=== PATIENT | male | born 1990 | race Caucasian/White ===

== ENCOUNTER 2021-07-28 14:36 | Inpatient (IN) | payer OTHER ==
[2021-07-28] MEDS ORDERED: ACETAMINOPHEN 325 MG TABLET (FP) PO PRN ×2 (15:43)
[2021-07-28] MEDS ORDERED: BISMUTH SUBSALICYLATE 524 MG/30 ML PO PRN (15:43)
[2021-07-28] MEDS ORDERED: DICYCLOMINE HCL 10 MG CAPSULE PO PRN (15:43)
[2021-07-28] MEDS ORDERED: IBUPROFEN 400 MG TABLET (FP) PO PRN (15:43)
[2021-07-28] MEDS ORDERED: LOPERAMIDE HCL 2 MG CAPSULE PO PRN (15:43)
[2021-07-28] MEDS ORDERED: BENZOCAINE/MENTHOL (CHLORASEPTIC ) LOZENGE MM PRN (15:43)
[2021-07-28] MEDS ORDERED: MAG HYDROX/AL HYDROX/SIMETH 30 ML UNIT-DOSE CUP PO PRN (15:43)
[2021-07-28] MEDS ORDERED: MAGNESIUM CITRATE 300 ML BOTTLE PO PRN (15:43)
[2021-07-28] MEDS ORDERED: ONDANSETRON *ODT* 4 MG TABLET SL PRN (15:43)
[2021-07-28] MEDS ORDERED: MAGNESIUM HYDROX 2400MG/30ML ORAL SUSPENSION 30 ML CUP PO PRN (15:43)
[2021-07-28 16:11] VITALS: BMI 18.8
[2021-07-28] MEDS ORDERED: diazePAM 5 MG TABLET ONE (19:16)
[2021-07-28] MEDS: diazePAM 5 MG TABLET PO SCH ×2 (19:18→22:22)
[2021-07-28] MEDS: NICOTINE 21 MG/24 HOURS TOPICAL PATCH TD SCH (19:55)
[2021-07-28] MEDS: NICOTINE 10 MG CARTRIDGE (INHALER) IH PRN (19:56)
[2021-07-28] MEDS: hydrOXYzine PAMOATE 25 MG CAPSULE (FP) PO SCH ×2 (20:01→22:22)
[2021-07-28] MEDS: PRENATAL VITAMINS W/ FOLIC ACID TABLET (FP) PO SCH (20:03)
[2021-07-28] MEDS: THIAMINE HCL 100 MG TABLET (FP) PO SCH (22:22)
[2021-07-28] MEDS: MELATONIN 5 MG TABLETS PO SCH (22:23)
[2021-07-29] MEDS: diazePAM 5 MG TABLET PO SCH ×4 (06:05→22:29)
[2021-07-29] MEDS: hydrOXYzine PAMOATE 25 MG CAPSULE (FP) PO SCH ×5 (06:05→22:30)
[2021-07-29] MEDS: PRENATAL VITAMINS W/ FOLIC ACID TABLET (FP) PO SCH (10:43)
[2021-07-29] MEDS ORDERED: methaDONE HCL 10 MG TABLET PO SCH (10:45)
[2021-07-29] MEDS ORDERED: methaDONE HCL 10 MG TABLET ONE (11:33)
[2021-07-29] MEDS ORDERED: methaDONE HCL 40 MG DISPERSABLE TABLET ONE (11:34)
[2021-07-29] MEDS: methaDONE 40 MG, methaDONE 30 MG PO SCH (11:35)
[2021-07-29] MEDS: NICOTINE 21 MG/24 HOURS TOPICAL PATCH TD SCH (12:00)
[2021-07-29 16:08] LABS: SARS-CoV-2 NAA Not Detected (Not Detected)
[2021-07-29] MEDS: METHOCARBAMOL 500 MG TABLET PO PRN (18:15)
[2021-07-29] MEDS: MELATONIN 5 MG TABLETS PO SCH (22:29)
[2021-07-29] MEDS: THIAMINE HCL 100 MG TABLET (FP) PO SCH (22:29)
[2021-07-30] MEDS ORDERED: methaDONE HCL 10 MG TABLET ONE (04:07)
[2021-07-30] MEDS ORDERED: methaDONE HCL 40 MG DISPERSABLE TABLET ONE (04:08)
[2021-07-30] MEDS: hydrOXYzine PAMOATE 25 MG CAPSULE (FP) PO SCH ×5 (05:10→22:03)
[2021-07-30] MEDS: diazePAM 5 MG TABLET PO SCH ×3 (05:10→22:03)
[2021-07-30] MEDS: methaDONE 40 MG, methaDONE 30 MG PO SCH (05:11)
[2021-07-30] MEDS: PRENATAL VITAMINS W/ FOLIC ACID TABLET (FP) PO SCH (10:26)
[2021-07-30] MEDS: NICOTINE 21 MG/24 HOURS TOPICAL PATCH TD SCH (10:26)
[2021-07-30] MEDS: METHOCARBAMOL 500 MG TABLET PO PRN (10:27)
[2021-07-30 13:24] LABS: ALBUMIN 2.8 g/dl (3.4-5.0); BLOOD UREA NITROGEN 11.7 mg/dL (7-18); CALCIUM 8.2 mg/dL (8.5-10.1)
[2021-07-30 13:27] LABS: CREATININE 0.8 mg/dL (0.55-1.3)
[2021-07-30 13:29] LABS: BILIRUBIN,TOTAL 0.2 mg/dL (0.2-1); TOT PROT 6.8 g/dl (6.4-8.2)
[2021-07-30 13:33] LABS: HEMATOCRIT 33.9 % (35.4-49); MCH 25.4 pg (25.7-33.7); MCHC 32.4 g/dl (32.0-35.9); MEAN CELL VOLUME 78.4 fl (80-96); MEAN PLT VOLUME 7.1 fl (7.5-11.1); PLATELET COUNT 328 10^3/uL (134-434); RBC 4.32 M/mm3 (4.00-5.60); RDW 15.7 % (11.9-15.9); WHITE BLOOD COUNT 5.3 K/mm3 (4.0-10.0)
[2021-07-30] MEDS: diazePAM 5 MG TABLET PO PRN (18:40)
[2021-07-30] MEDS: NICOTINE 10 MG CARTRIDGE (INHALER) IH PRN (18:42)
[2021-07-30] MEDS: THIAMINE HCL 100 MG TABLET (FP) PO SCH (22:02)
[2021-07-30] MEDS: MELATONIN 5 MG TABLETS PO SCH (22:03)
[2021-07-31 00:07] LABS: SARS-CoV-2 NAA Not Detected (Not Detected)
[2021-07-31] MEDS ORDERED: methaDONE HCL 10 MG TABLET ONE (04:30)
[2021-07-31] MEDS ORDERED: methaDONE HCL 40 MG DISPERSABLE TABLET ONE (04:30)
[2021-07-31] MEDS: methaDONE 40 MG, methaDONE 30 MG PO SCH (05:29)
[2021-07-31] MEDS: diazePAM 5 MG TABLET PO SCH ×2 (05:30→18:02)
[2021-07-31] MEDS: hydrOXYzine PAMOATE 25 MG CAPSULE (FP) PO SCH ×5 (05:30→22:29)
[2021-07-31] MEDS: NICOTINE 10 MG CARTRIDGE (INHALER) IH PRN ×2 (05:32→18:13)
[2021-07-31] MEDS: METHOCARBAMOL 500 MG TABLET PO PRN ×2 (08:02→22:31)
[2021-07-31] MEDS: diazePAM 5 MG TABLET PO PRN ×2 (10:19→14:31)
[2021-07-31] MEDS: PRENATAL VITAMINS W/ FOLIC ACID TABLET (FP) PO SCH (10:19)
[2021-07-31] MEDS: NICOTINE 21 MG/24 HOURS TOPICAL PATCH TD SCH (10:20)
[2021-07-31 17:49] VITALS: TEMP 98.6
[2021-07-31] MEDS: THIAMINE HCL 100 MG TABLET (FP) PO SCH (22:29)
[2021-07-31] MEDS: MELATONIN 5 MG TABLETS PO SCH (22:29)
[2021-08-01] MEDS ORDERED: methaDONE HCL 10 MG TABLET ONE (05:25)
[2021-08-01] MEDS ORDERED: methaDONE HCL 40 MG DISPERSABLE TABLET ONE (05:25)
[2021-08-01] MEDS: methaDONE 40 MG, methaDONE 30 MG PO SCH (05:26)
[2021-08-01] MEDS: hydrOXYzine PAMOATE 25 MG CAPSULE (FP) PO SCH (05:26)
[2021-08-01] MEDS ORDERED: diazePAM 5 MG TABLET PO ONE (06:00)
[2021-08-01] MEDS: METHOCARBAMOL 500 MG TABLET PO PRN (07:11)
[2021-08-01] MEDS: NICOTINE 10 MG CARTRIDGE (INHALER) IH PRN (07:12)
[2021-08-01 07:18] VITALS: BP 107/62; PULSE 96
== END 2021-08-01 08:53 | disposition home or self-care (01) | DRG 773 ==
LOC: YASAS 14:36 → Y6N 18:10
PROVIDERS: ADMIT Allergy & Immunology; ATTEND Allergy & Immunology
PROC: HZ2ZZZZ Detoxification Services for Substance Abuse Treatment (ICD-10-PCS; principal; 2021-07-28)
DX: F13.230 Sedative, hypnotic or anxiolytic dependence with withdrawal, uncomplicated (principal); F11.20 Opioid dependence, uncomplicated; F17.210 Nicotine dependence, cigarettes, uncomplicated; F19.280 Other psychoactive substance dependence with psychoactive substance-induced anxiety disorder; F19.282 Other psychoactive substance dependence with psychoactive substance-induced sleep disorder; F41.9 Anxiety disorder, unspecified; F32.A Depression, unspecified; Z56.0 Unemployment, unspecified; Z59.02 Unsheltered homelessness
CPT/HCPCS: 36415; 80053; 85027; 86780; 93005; 93010; C9803-CS; U0003; U0005

== ENCOUNTER 2021-11-22 12:47 | Inpatient (IN) | payer OTHER ==
[2021-11-22 15:40] VITALS: BMI 18.1
[2021-11-22] MEDS ORDERED: ONDANSETRON *ODT* 4 MG TABLET SL PRN (17:04)
[2021-11-22] MEDS ORDERED: DICYCLOMINE HCL 10 MG CAPSULE PO PRN (17:04)
[2021-11-22] MEDS ORDERED: LOPERAMIDE HCL 2 MG CAPSULE PO PRN (17:04)
[2021-11-22] MEDS ORDERED: IBUPROFEN 400 MG TABLET (FP) PO PRN (17:04)
[2021-11-22] MEDS ORDERED: ACETAMINOPHEN 325 MG TABLET (FP) PO PRN ×2 (17:04)
[2021-11-22] MEDS ORDERED: MAG HYDROX/AL HYDROX/SIMETH 30 ML UNIT-DOSE CUP PO PRN (17:04)
[2021-11-22] MEDS ORDERED: BISMUTH SUBSALICYLATE 524 MG/30 ML PO PRN (17:04)
[2021-11-22] MEDS ORDERED: BENZOCAINE/MENTHOL (CHLORASEPTIC ) LOZENGE MM PRN (17:04)
[2021-11-22] MEDS ORDERED: METHOCARBAMOL 500 MG TABLET PO PRN (17:04)
[2021-11-22] MEDS ORDERED: MAGNESIUM CITRATE 300 ML BOTTLE PO PRN (17:04)
[2021-11-22] MEDS ORDERED: MAGNESIUM HYDROX 2400MG/30ML ORAL SUSPENSION 30 ML CUP PO PRN (17:04)
[2021-11-22] MEDS ORDERED: IBUPROFEN 600 MG TABLET (FP) PO PRN (17:04)
[2021-11-22] MEDS: NICOTINE 10 MG CARTRIDGE (INHALER) IH PRN (18:07)
[2021-11-22] MEDS ORDERED: MELATONIN 5 MG TABLETS PO SCH (22:00)
[2021-11-22] MEDS ORDERED: THIAMINE HCL 100 MG TABLET (FP) PO SCH (22:00)
[2021-11-22] MEDS: hydrOXYzine PAMOATE 25 MG CAPSULE (FP) PO SCH ×2 (22:32→22:33)
[2021-11-22] MEDS: PRENATAL VITAMINS W/ FOLIC ACID TABLET (FP) PO SCH (22:33)
[2021-11-23] MEDS: hydrOXYzine PAMOATE 25 MG CAPSULE (FP) PO SCH ×2 (05:33→10:45)
[2021-11-23] MEDS ORDERED: methaDONE HCL 10 MG TABLET PO ONE (08:51)
[2021-11-23] MEDS: PRENATAL VITAMINS W/ FOLIC ACID TABLET (FP) PO SCH (10:45)
[2021-11-23] MEDS: NICOTINE 10 MG CARTRIDGE (INHALER) IH PRN (10:48)
[2021-11-23 11:11] LABS: HEMATOCRIT 32.1 % (35.4-49); HEMOGLOBIN 10.8 GM/dL (11.7-16.9); MCH 26.2 pg (25.7-33.7); MCHC 33.7 g/dl (32.0-35.9); MEAN CELL VOLUME 77.6 fl (80-96); MEAN PLT VOLUME 7.5 fl (7.5-11.1); PLATELET COUNT 312 10^3/uL (134-434); RBC 4.13 M/mm3 (4.00-5.60); RDW 15.5 % (11.9-15.9); WHITE BLOOD COUNT 4.8 K/mm3 (4.0-10.0)
[2021-11-23 11:23] LABS: ALBUMIN 3.4 g/dl (3.4-5.0); BLOOD UREA NITROGEN 13.7 mg/dL (7-18)
[2021-11-23 11:26] LABS: CREATININE 0.9 mg/dL (0.55-1.3)
[2021-11-23 11:27] LABS: BILIRUBIN,TOTAL 0.4 mg/dL (0.2-1); TOT PROT 7.1 g/dl (6.4-8.2)
[2021-11-23 13:44] VITALS: BP 123/74; PULSE 67; RESP 18; TEMP 97.4
[2021-11-24] MEDS ORDERED: methaDONE HCL 10 MG TABLET PO SCH (06:00)
== END 2021-11-23 12:48 | disposition home or self-care (01) | DRG 773 ==
LOC: YASAS 12:47 → Y6N 17:29
PROVIDERS: ADMIT Allergy & Immunology; ATTEND Psychiatry & Neurology Pain Medicine
PROC: HZ2ZZZZ Detoxification Services for Substance Abuse Treatment (ICD-10-PCS; principal; 2021-11-21)
DX: F10.230 Alcohol dependence with withdrawal, uncomplicated (principal); F11.20 Opioid dependence, uncomplicated; F13.230 Sedative, hypnotic or anxiolytic dependence with withdrawal, uncomplicated; F14.20 Cocaine dependence, uncomplicated; F17.210 Nicotine dependence, cigarettes, uncomplicated; Z28.310 Unvaccinated for COVID-19; Z59.00 Homelessness unspecified
CPT/HCPCS: 36415; 80053; 85027; 86780

== ENCOUNTER 2021-11-24 21:14 | Emergency (ER) | payer OTHER ==
[2021-11-24 21:29] VITALS: BP 97/62; PULSE 115; RESP 16; TEMP 98.7; BMI 19.5
== END 2021-11-24 22:10 | disposition left against medical advice (07) ==
LOC: JER 21:14
DX: F19.129 Other psychoactive substance abuse with intoxication, unspecified (principal)
CPT/HCPCS: 99281-25

== ENCOUNTER 2022-01-19 14:02 | Inpatient (IN) | payer OTHER ==
[2022-01-19 17:43] VITALS: BMI 18.1
[2022-01-19] MEDS ORDERED: IBUPROFEN 600 MG TABLET (FP) PO PRN (18:12)
[2022-01-19] MEDS ORDERED: MAG HYDROX/AL HYDROX/SIMETH 30 ML UNIT-DOSE CUP PO PRN (18:12)
[2022-01-19] MEDS ORDERED: ONDANSETRON *ODT* 4 MG TABLET SL PRN (18:12)
[2022-01-19] MEDS ORDERED: MAGNESIUM CITRATE 300 ML BOTTLE PO PRN (18:12)
[2022-01-19] MEDS ORDERED: DICYCLOMINE HCL 10 MG CAPSULE PO PRN (18:12)
[2022-01-19] MEDS ORDERED: BENZOCAINE/MENTHOL (CHLORASEPTIC ) LOZENGE MM PRN (18:12)
[2022-01-19] MEDS ORDERED: LOPERAMIDE HCL 2 MG CAPSULE PO PRN (18:12)
[2022-01-19] MEDS ORDERED: NALOXONE HCL (KLOXXADO) 8 MG SPRAY NS PRN (18:12)
[2022-01-19] MEDS ORDERED: ACETAMINOPHEN 325 MG TABLET (FP) PO PRN ×2 (18:12)
[2022-01-19] MEDS ORDERED: IBUPROFEN 400 MG TABLET (FP) PO PRN (18:12)
[2022-01-19] MEDS ORDERED: MAGNESIUM HYDROX 2400MG/30ML ORAL SUSPENSION 30 ML CUP PO PRN (18:12)
[2022-01-19] MEDS ORDERED: BISMUTH SUBSALICYLATE 524 MG/30 ML PO PRN (18:12)
[2022-01-19] MEDS: diazePAM 5 MG TABLET PO PRN (19:55)
[2022-01-19] MEDS: NICOTINE 10 MG CARTRIDGE (INHALER) IH PRN (19:56)
[2022-01-19] MEDS: THIAMINE HCL 100 MG TABLET (FP) PO SCH (22:31)
[2022-01-19] MEDS: diazePAM 5 MG TABLET PO SCH (22:32)
[2022-01-19] MEDS: MELATONIN 5 MG TABLETS PO SCH (22:32)
[2022-01-19] MEDS: hydrOXYzine PAMOATE 25 MG CAPSULE (FP) PO SCH (22:32)
[2022-01-20] MEDS: hydrOXYzine PAMOATE 25 MG CAPSULE (FP) PO SCH ×5 (05:27→22:30)
[2022-01-20] MEDS: diazePAM 5 MG TABLET PO SCH ×4 (05:27→22:28)
[2022-01-20] MEDS ORDERED: METHADONE PO SCH (09:45)
[2022-01-20] MEDS: PRENATAL VITAMINS W/ FOLIC ACID TABLET (FP) PO SCH (10:47)
[2022-01-20] MEDS: NICOTINE 7 MG/24 HOURS TOPICAL PATCH TD SCH (10:51)
[2022-01-20] MEDS: NICOTINE 10 MG CARTRIDGE (INHALER) IH PRN (10:51)
[2022-01-20 12:32] LABS: HEMATOCRIT 33.6 % (35.4-49); MCH 26.3 pg (25.7-33.7); MCHC 32.7 g/dl (32.0-35.9); MEAN CELL VOLUME 80.3 fl (80-96); MEAN PLT VOLUME 7.4 fl (7.5-11.1); PLATELET COUNT 205 10^3/uL (134-434); RBC 4.19 M/mm3 (4.00-5.60); RDW 15.9 % (11.9-15.9); WHITE BLOOD COUNT 6.4 K/mm3 (4.0-10.0)
[2022-01-20 13:25] LABS: ALBUMIN 2.8 g/dl (3.4-5.0); BILIRUBIN,TOTAL 0.4 mg/dL (0.2-1); BLOOD UREA NITROGEN 22.5 mg/dL (7-18); CALCIUM 8.5 mg/dL (8.5-10.1); TOT PROT 6.4 g/dl (6.4-8.2)
[2022-01-20] MEDS: GABAPENTIN 300 MG CAPSULE PO SCH ×2 (13:44→22:29)
[2022-01-20] MEDS: diazePAM 5 MG TABLET PO PRN (13:45)
[2022-01-20] MEDS: METHOCARBAMOL 500 MG TABLET PO PRN (17:57)
[2022-01-20] MEDS: THIAMINE HCL 100 MG TABLET (FP) PO SCH (22:28)
[2022-01-20] MEDS: traZODone HCL 50 MG TABLET (FP) PO SCH (22:28)
[2022-01-20] MEDS: MELATONIN 5 MG TABLETS PO SCH (23:07)
[2022-01-21] MEDS: GABAPENTIN 300 MG CAPSULE PO SCH ×3 (05:41→22:11)
[2022-01-21] MEDS: hydrOXYzine PAMOATE 25 MG CAPSULE (FP) PO SCH ×5 (05:42→22:11)
[2022-01-21] MEDS: diazePAM 5 MG TABLET PO SCH ×3 (05:43→22:11)
[2022-01-21] MEDS: NICOTINE 7 MG/24 HOURS TOPICAL PATCH TD SCH (10:51)
[2022-01-21] MEDS: diazePAM 5 MG TABLET PO PRN ×2 (10:52→17:34)
[2022-01-21] MEDS: PRENATAL VITAMINS W/ FOLIC ACID TABLET (FP) PO SCH (10:52)
[2022-01-21] MEDS: NICOTINE 10 MG CARTRIDGE (INHALER) IH PRN (11:00)
[2022-01-21] MEDS: THIAMINE HCL 100 MG TABLET (FP) PO SCH (22:11)
[2022-01-21] MEDS: MELATONIN 5 MG TABLETS PO SCH (22:11)
[2022-01-21] MEDS: traZODone HCL 50 MG TABLET (FP) PO SCH (22:11)
[2022-01-22] MEDS: GABAPENTIN 300 MG CAPSULE PO SCH ×3 (05:18→22:07)
[2022-01-22] MEDS: diazePAM 5 MG TABLET PO SCH ×2 (05:18→17:36)
[2022-01-22] MEDS: hydrOXYzine PAMOATE 25 MG CAPSULE (FP) PO SCH ×5 (05:18→22:07)
[2022-01-22] MEDS: NICOTINE 7 MG/24 HOURS TOPICAL PATCH TD SCH (09:48)
[2022-01-22] MEDS: PRENATAL VITAMINS W/ FOLIC ACID TABLET (FP) PO SCH (09:48)
[2022-01-22] MEDS: METHOCARBAMOL 500 MG TABLET PO PRN ×2 (09:48→17:37)
[2022-01-22] MEDS: NICOTINE 10 MG CARTRIDGE (INHALER) IH PRN ×2 (12:10→17:38)
[2022-01-22] MEDS: diazePAM 5 MG TABLET PO PRN (14:56)
[2022-01-22] MEDS: traZODone HCL 50 MG TABLET (FP) PO SCH (22:07)
[2022-01-22] MEDS: MELATONIN 5 MG TABLETS PO SCH (22:07)
[2022-01-22] MEDS: THIAMINE HCL 100 MG TABLET (FP) PO SCH (22:07)
[2022-01-23] MEDS: hydrOXYzine PAMOATE 25 MG CAPSULE (FP) PO SCH ×3 (05:34→13:20)
[2022-01-23] MEDS: GABAPENTIN 300 MG CAPSULE PO SCH ×2 (05:34→13:20)
[2022-01-23] MEDS: NICOTINE 10 MG CARTRIDGE (INHALER) IH PRN ×2 (05:57→10:25)
[2022-01-23] MEDS ORDERED: diazePAM 5 MG TABLET PO ONE (06:00)
[2022-01-23 06:38] VITALS: RESP 18
[2022-01-23] MEDS: PRENATAL VITAMINS W/ FOLIC ACID TABLET (FP) PO SCH (10:24)
[2022-01-23] MEDS: METHOCARBAMOL 500 MG TABLET PO PRN (10:24)
[2022-01-23] MEDS: NICOTINE 7 MG/24 HOURS TOPICAL PATCH TD SCH (10:26)
[2022-01-23 13:26] VITALS: BP 115/64; PULSE 85; TEMP 97
== END 2022-01-23 13:43 | disposition home or self-care (01) | DRG 773 ==
LOC: YASAS 14:02 → Y6N 18:14
PROVIDERS: ADMIT Allergy & Immunology; ATTEND Surgery
PROC: HZ2ZZZZ Detoxification Services for Substance Abuse Treatment (ICD-10-PCS; principal; 2022-01-19)
DX: F11.23 Opioid dependence with withdrawal (principal); F13.20 Sedative, hypnotic or anxiolytic dependence, uncomplicated; F14.20 Cocaine dependence, uncomplicated; F12.20 Cannabis dependence, uncomplicated; F17.210 Nicotine dependence, cigarettes, uncomplicated; F19.282 Other psychoactive substance dependence with psychoactive substance-induced sleep disorder; F19.280 Other psychoactive substance dependence with psychoactive substance-induced anxiety disorder; F41.8 Other specified anxiety disorders; Z28.310 Unvaccinated for COVID-19; Z28.9 Immunization not carried out for unspecified reason
CPT/HCPCS: 36415; 80053; 82962; 85027; 86780; C9803-CS; G0480; U0003; U0005

== ENCOUNTER 2022-11-20 15:07 | Inpatient (IN) | payer OTHER ==
[2022-11-20 16:45] VITALS: BMI 20.9
[2022-11-20] MEDS ORDERED: BENZOCAINE/MENTHOL (CHLORASEPTIC ) LOZENGE MM PRN (20:40)
[2022-11-20] MEDS ORDERED: POLYETHYLENE GLYCOL (HEALTHYLAX) 3350 17 GM PACKET PO PRN (20:40)
[2022-11-20] MEDS ORDERED: NICOTINE POLACRILEX 2 MG GUM BUC PRN (20:40)
[2022-11-20] MEDS ORDERED: IBUPROFEN 600 MG TABLET (FP) PO PRN (20:40)
[2022-11-20] MEDS ORDERED: LOPERAMIDE HCL 2 MG CAPSULE PO PRN (20:40)
[2022-11-20] MEDS ORDERED: guaiFENesin 600 MG TABLET.ER (FP) PO PRN (20:40)
[2022-11-20] MEDS ORDERED: MELATONIN 5 MG TABLETS PO PRN (20:40)
[2022-11-20] MEDS ORDERED: IBUPROFEN 400 MG TABLET (FP) PO PRN (20:40)
[2022-11-20] MEDS ORDERED: BENZONATATE 200 MG CAPSULE PO PRN (20:40)
[2022-11-20] MEDS ORDERED: P-EPHED 60MG/TRIPROLIDI 2.5MG TABLET PO PRN (20:40)
[2022-11-20] MEDS ORDERED: COLLOIDAL OATMEAL 1 BAR EACH TP PRN (20:40)
[2022-11-20] MEDS ORDERED: NALOXONE HCL 0.4 MG/ML VIAL IM PRN (20:40)
[2022-11-20] MEDS ORDERED: MAG HYDROX/AL HYDROX/SIMETH 30 ML UNIT-DOSE CUP PO PRN (20:40)
[2022-11-20] MEDS ORDERED: MAGNESIUM HYDROX 2400MG/30ML ORAL SUSPENSION 30 ML CUP PO PRN (20:40)
[2022-11-20] MEDS ORDERED: ACETAMINOPHEN 325 MG TABLET (FP) PO PRN (20:40)
[2022-11-20] MEDS ORDERED: AMMONIUM LACTATE 12% LOTION 225 GM BOTTLE TP PRN (20:40)
[2022-11-20] MEDS ORDERED: NALOXONE HCL (KLOXXADO) 8 MG SPRAY NS PRN (20:40)
[2022-11-20] MEDS ORDERED: THIAMINE HCL 100 MG TABLET (FP) PO SCH (22:00)
[2022-11-21 07:29] VITALS: TEMP 97.5
[2022-11-21] MEDS ORDERED: PRENATAL VITAMINS W/ FOLIC ACID TABLET (FP) PO SCH (10:00)
[2022-11-21] MEDS ORDERED: methaDONE HCL 10 MG TABLET PO SCH (10:30)
[2022-11-21] MEDS ORDERED: hydrOXYzine PAMOATE 50 MG CAPSULE (FP) PO PRN (10:31)
[2022-11-21 10:53] VITALS: BP 112/73; PULSE 97; RESP 18
[2022-11-21] MEDS ORDERED: clonazePAM 0.5 MG ODT TABLETS SL ONE (11:00)
[2022-11-21] MEDS ORDERED: GABAPENTIN 300 MG CAPSULE PO SCH (11:15)
[2022-11-21 15:53] LABS: EPI CELLS 3 /uL (0-25.1); HYALINE CASTS 0 /uL (0-3.1); PH,URINE 6.5 (5.0-8.0); URINE APPEARANCE CLEAR; URINE BACTERIA 17 /uL (0-1359); URINE BILIRUBIN NEGATIVE (NEGATIVE); URINE COLOR YELLOW; URINE GLUCOSE (UA) NEGATIVE (NEGATIVE); URINE KETONE NEGATIVE (NEGATIVE); URINE LEUK ESTERASE NEGATIVE (NEGATIVE); URINE NITRITE NEGATIVE (NEGATIVE); URINE PROTEIN 1+ (NEGATIVE); URINE RBC 100 /uL (0-23.9); URINE UROBILINOGEN 0.2 mg/dL (0.2-1.0); URINE WBC 5 /uL (0-25.8)
== END 2022-11-21 14:07 | disposition left against medical advice (07) | DRG 770 ==
LOC: YASAS 15:07 → Y3W 21:01
PROVIDERS: ADMIT Allergy & Immunology; ATTEND Psychiatry & Neurology Pain Medicine
PROC: HZ42ZZZ Group Counseling for Substance Abuse Treatment, Cognitive-Behavioral (ICD-10-PCS; principal; 2022-11-20)
DX: F14.20 Cocaine dependence, uncomplicated (principal); F11.20 Opioid dependence, uncomplicated; F17.210 Nicotine dependence, cigarettes, uncomplicated; F41.9 Anxiety disorder, unspecified; F32.A Depression, unspecified; R26.89 Other abnormalities of gait and mobility; Z86.19 Personal history of other infectious and parasitic diseases
CPT/HCPCS: 81003; 87635